=== PATIENT | female | born 1945 | race Asian ===

== ENCOUNTER 2018-12-11 15:33 | Emergency (ER) | payer OTHER ==
[~2018-12-11] VITALS: Ht 149.9 cm; Wt 72.6 kg
[2018-12-11 15:38] VITALS: BP_SYST 132; BP_SYST 152; BP_DIAS 104; BP_DIAS 62
--- NOTE | 2018-12-11 15:46 | NUR ---
BIB DAUGHTER C/O L SIDED CHEST PAIN RADIATING TO HER LT SHOULDER AND BACK W/ 11/08 DENSITY AND PRESSURE-LIKE X1 STARTING YESTERDAY 1:30AM TODAY. PT ALSO REPORTS FEELING SOB. O2 SAT 100% RA, PT REPIRATIONS ARE EVEN AND UNLABORED, SKIN DRY/WARM/NFE. PVSS; PATIENT POSITIONED FOR COMFORT; HOB ELEVATED; BEDRAILS UP X1; BED DOWN. ER MD MADE AWARE OF PT STATUS. DAUGHTER IS AT BEDSIDE.
--- NOTE | 2018-12-11 15:46 | NUR ---
PT TAKEN TO BED 6.
[2018-12-11] MEDS ORDERED: ASPIRIN 325 MG TAB PO ONE (16:35)
[2018-12-11] MEDS ORDERED: NITROGLYCERIN 0.4 MG TAB SL ONE (16:35)
--- NOTE | 2018-12-11 16:52 | NUR ---
PT STATES OF HAVING 2/10 PAIN AFTER TAKING THE FIRST DOSE OF NITROSTAT 0.4MG.
[2018-12-11 16:55] LABS: BASOPHILS % (AUTO) 0.3 % (0.0-2.0); EOSINOPHILS # (AUTO) 0.2 K/uL (0-0.4); EOSINOPHILS % (AUTO) 2.5 % (0.0-4.0); HEMATOCRIT 31.9 % (36-48); HEMOGLOBIN 10.8 g/dL (12.0-16.0); LYMPHOCYTES # (AUTO) 2.5 K/uL (2.5-16.5); MEAN CORPUSCULAR HEMOGLOBIN 30 pg (27-31); MEAN CORPUSCULAR HGB CONC 34 g/dL (33-37); MONOCYTES # (AUTO) 0.6 K/uL (0.8-1.0); NEUTROPHILS % (AUTO) 60.2 % (42.2-75.2); PLATELET COUNT (AUTO) 329 K/uL (140-450); RED BLOOD CELL COUNT(AUTO) 3.63 MIL/uL (4.20-5.40); RED CELL DISTRIBUTION WIDTH 13.5 % (11.6-13.7); WHITE BLOOD COUNT (AUTO) 8.3 K/uL (4.8-10.8)
[2018-12-11 17:15] LABS: ALBUMIN 3.5 g/dL (3.4-5.0); ASPARTATE AMINOTRANSFERASE 17 U/L (15-37); CARBON DIOXIDE 20.9 mmol/L (21-32); CHLORIDE 97 mmol/L (98-107); CREATININE 1.2 mg/dL (0.6-1.3); GLUCOSE 176 mg/dL (74-106); POTASSIUM 3.9 mmol/L (3.5-5.1); SODIUM SERUM 129 mmol/L (136-145); TOTAL BILIRUBIN 0.4 mg/dL (0.0-1.0); UREA NITROGEN, BLOOD 18 mg/dL (7-18)
[2018-12-11 17:55] LABS: CREATINE KINASE MB 1.1 ng/mL (0-3.6)
--- NOTE | 2018-12-11 18:00 | NUR ---
PT IS RESTING IN BED WITH EYES OPENED. VSS. PT IS AT MONITOR AND 2L OXYGEN.
--- NOTE | 2018-12-11 19:02 | NUR ---
PT STATES FEELING HUNGERY. FOOD AND JUICE PROVIDED TO PATIENT.
--- NOTE | 2018-12-11 19:20 | NUR ---
Pt report given to ZECHARIAH Dickerson. Transfer of care at this time.
[2018-12-11 20:24] VITALS: BP 110/58
--- NOTE | 2018-12-11 20:24 | NUR ---
Patient discharged with v/s stable. Written and verbal after care instructions given and explained. Patient alert, oriented and verbalized understanding of instructions. Ambulatory with steady gait. All questions addressed prior to discharge. ID band removed. Patient advised to follow up with PMD. Opportunity to ask questions provided and answered. PT STATED HER PAIN LEVEL HAD DECREASED TO 0/10 PRIOR TO D/C. PT RECIEVED LAB RESULT DOCUMENT PER REQUEST.
== END 2018-12-11 20:24 | disposition home or self-care (01) ==
LOC: MED 15:33
DX: R07.9 Chest pain, unspecified (principal); I10 Essential (primary) hypertension
CPT/HCPCS: 36415; 71045; 80053; 81002; 82550; 82553; 84484; 85025; 85379; 93005; 99284; Q0092